=== PATIENT | female | born 1965 | race Two or more races ===

== ENCOUNTER → 2018-04-10 | Outpatient (CLI) | payer OTHER ==
[~2018-04-10] MED LIST: DIAZ5TAB PO; ESOM20CA PO; HYDR12.53 PO; LISI-167 PO; LISI-170 PO; LISI1TAB5 PO; LOSA50TA7 PO; METH750T2 PO; METO25TA35 PO; MULT-658 PO; ONDA4TAB7 PO; OXYC-302 PO; POTA10TA5 PO
== END | disposition home or self-care (01) ==
LOC: CFH 08:57
PROVIDERS: ATTEND Internal Medicine
DX: R94.5 Abnormal results of liver function studies (principal)
CPT/HCPCS: 76705

== ENCOUNTER 2018-06-21 12:13 | Emergency (ER) | payer OTHER ==
[~2018-06-21] VITALS: Ht 154.9 cm; Wt 56.4 kg
[~2018-06-21 12:13] MED LIST changes: +HYDR12.517 PO; -HYDR12.53 PO
[2018-06-21] MEDS ORDERED: ATOR10TA PO (12:52)
[2018-06-21] MEDS ORDERED: LISI1TAB3 PO (12:52)
[2018-06-21] MEDS ORDERED: AMLO10TA6 PO (12:52)
[2018-06-21] MEDS ORDERED: IBUPROFEN 200 MG TABLET PO ONE (13:00)
[2018-06-21] MEDS ORDERED: DIAZEPAM 5 MG TABLET PO ONE (13:00)
[2018-06-21] MEDS ORDERED: ACETAMINOPHEN 500 MG TABLET PO ONE (13:00)
[2018-06-21] MEDS ORDERED: ACETAMINOPHEN 500 MG TABLET ONE (13:06)
[2018-06-21] MEDS ORDERED: IBUPROFEN 800 MG TABLET ONE (13:06)
[2018-06-21] MEDS ORDERED: DIAZEPAM 5 MG TABLET ONE (13:06)
[2018-06-21] MEDS ORDERED: OXYcodone/APAP 5/325MG TABLET PO ONE (14:30)
[2018-06-21] MEDS ORDERED: OXYcodone IR 5MG TABLET ONE (14:53)
[2018-06-21 14:57] VITALS: BP 114/81
[2018-06-21] MEDS ORDERED: OXYcodone IR 5MG TABLET PO ONE (15:00)
== END 2018-06-21 15:55 | disposition home or self-care (01) ==
LOC: ED 12:45
DX: M54.2 Cervicalgia (principal); I10 Essential (primary) hypertension; M25.511 Pain in right shoulder
CPT/HCPCS: 72050; 99284

== ENCOUNTER 2019-02-18 13:49 | Outpatient (CLI) | payer OTHER | END 2019-02-18 23:59 | disposition home or self-care (01) | LOC: CFH 13:49 | PROVIDERS: ATTEND Internal Medicine | DX: R94.5 Abnormal results of liver function studies (principal) | CPT/HCPCS: 74160; 82565; Q9967 ==